=== PATIENT | female | born 1950 | race American Indian/Alaskan Native ===

== ENCOUNTER 2017-03-08 21:57 | Emergency (ER) | payer MEDICARE ==
[2017-03-08 22:48] LABS: Basophils % (Auto) 0.5 % (0.0-1.8); Eosinophils % (Auto) 2.1 % (0.0-4.3); Hematocrit 36.3 % (30.3-42.9); Mean Corpuscular HGB Conc 33 % (30-34); Mean Corpuscular Hemoglobin 28 pg (28-32); Mean Corpuscular Volume 84 fl (79-97); Platelet Count 229 K/mm3 (140-440); Red Blood Count 4.34 M/mm3 (3.65-5.03); Red Cell Distribution Width 14.5 % (13.2-15.2)
[2017-03-08 23:03] LABS: Anion Gap 15 mmol/L; BUN/Creatinine Ratio 11.25; Blood Urea Nitrogen 9 mg/dL (7-17); Calcium 9.8 mg/dL (8.4-10.2); Carbon Dioxide 28 mmol/L (22-30); Chloride 101.2 mmol/L (98-107); Glucose 101 mg/dL (65-100); Potassium 4.4 mmol/L (3.6-5.0); Sodium 140 mmol/L (137-145)
[2017-03-09 01:10] VITALS: BP 152/75
--- NOTE | 2017-03-09 02:32 | Emergency Department Report ---
ED Chest Pain HPI - General Chief Complaint: Chest Pain Stated Complaint: CHEST PAIN Time Seen by Provider: 03/09/17 01:24 Source: patient Mode of arrival: Wheelchair Limitations: No Limitations - History of Present Illness Initial Comments: This is a 66-year-old Afro-Monegasque female presents to the emergency department with complaint of midsternal nonradiating chest pain that occurred about 1 hour prior to presentation and shortly after she finished dinner this evening. EMS was called with the patient says that her symptoms resolved by the time she got into the ambulance. She denies any shortness of breath, nausea, vomiting, fever , palpitations, back pain. She did not take anything for symptoms prior to presentation. She has a past medical history of hypertension. She does not smoke cigarettes but does sometimes chew tobacco. She does not currently have a primary care physician. No recent travel or sick contacts at home. Severity scale (0 -10): 8 - Related Data Home Medications Medication Instructions Recorded Confirmed Last Taken No Known Home Medications [No 03/09/17 03/09/17 Unknown Reported Home Medications] Allergies Allergy/AdvReac Type Severity Reaction Status Date / Time No Known Allergies Allergy Verified 03/08/17 22:11 Heart Score - HEART Score History: Slightly suspicious EKG: Normal Age: > 65 Risk factors: 1-2 risk factors Troponin: < normal limit HEART Score: 3 - Critical Actions Critical Actions: 0-3 pts:0.9-1.7%risk of adverse cardiac event.Candidate for discharge ED Review of Systems ROS: Stated complaint: CHEST PAIN Other details as noted in HPI Comment: All other systems reviewed and negative Constitutional: denies: chills, fever Eyes: denies: eye pain, eye discharge, vision change ENT: denies: ear pain, throat pain Respiratory: denies: cough, shortness of breath, wheezing Cardiovascular: chest pain. denies: palpitations Gastrointestinal: denies: abdominal pain, nausea, diarrhea Genitourinary: denies: urgency, dysuria, discharge Musculoskeletal: denies: back pain, joint swelling, arthralgia Skin: denies: rash, lesions Neurological: denies: headache, weakness, paresthesias ED Past Medical Hx - Past Medical History Previous Medical History?: Yes Hx Hypertension: Yes Hx Arthritis: Yes Additional medical history: BORDERLINE CHOLESTEROL / STOMACH ULCERS - Surgical History Past Surgical History?: No - Social History Smoking Status: Current Every Day Smoker Substance Use Type: Alcohol - Medications Home Medications: Home Medications Medication Instructions Recorded Confirmed Last Taken Type No Known Home Medications [No 03/09/17 03/09/17 Unknown History Reported Home Medications] ED Physical Exam - General Limitations: No Limitations - Other Other exam information: GENERAL: The patient is well-developed well-nourished. HEENT: Normocephalic. Atraumatic. Extraocular motions are intact. Patient has moist mucous membranes. Pupils equal reactive to light bilaterally. NECK: Supple. Trachea is midline. CHEST/LUNGS: Clear to auscultation. There is no respiratory distress noted. HEART/CARDIOVASCULAR: Regular. There is no tachycardia. There is no gallop rub or murmur. ABDOMEN: Abdomen is soft, nontender. Patient has normal bowel sounds. There is no abdominal distention. SKIN: There is no rash. There is no edema. There is no diaphoresis. NEURO: The patient is awake, alert, and oriented. The patient is cooperative. The patient has no focal neurologic deficits. The patient has normal speech. MUSCULOSKELETAL: There is no tenderness or deformity. There is no limitation range of motion. There is no evidence of acute injury. ED Course Vital Signs 03/08/17 03/09/17 22:11 01:05 Temperature 98.4 F Pulse Rate 68 58 L Respiratory 24 12 Rate Blood Pressure 154/92 Blood Pressure 152/75 [Left] O2 Sat by Pulse 100 100 Oximetry HAWA score - Hawa Score Age > 65: (1) Yes Aspirin use within the Past 7 Days: (0) No 3 or more CAD Risk Factors: (0) No 2 or more Angina events in past 24 hrs: (0) No Known CAD with more than 50% Stenosis: (0) No Elevated Cardiac Markers: (0) No ST Deviation Greater than 0.5mm: (0) No HAWA Score: 1 ED Medical Decision Making - Lab Data Result diagrams: 03/08/17 22:31 03/08/17 22:31 - EKG Data -: EKG Interpreted by Me EKG shows normal: sinus rhythm, axis, intervals, QRS complexes, ST-T waves ( nonspecific T-wave) Rate: bradycardia (58 bpm) - EKG Data When compared to previous EKG there are: previous EKG unavailable Interpretation: other (sinus rhythm, 58 bpm, nonspecific T-wave) - Radiology Data Radiology results: image reviewed interpreted by me: Chest x-ray did not show any acute process. Heart is normal shape and size. No effusions. No pneumothorax. No signs of pneumonia seen. - Medical Decision Making 66-year-old female presents emergency Department after having an episode of midsternal nonradiating chest discomfort prior to presentation but the pain also resolved prior to presentation. This occurred just after the patient ate something. EKG does not show any signs of ST elevation WI. Labs are unremarkable including negative troponins 2. Chest x-ray does not show any acute process. Since the patient has no tachycardia, hypoxia, complaints of shortness of breath or any current complaints of chest pain, I felt she was very low suspicion for a PE. She is low on the well's score criteria as well. Patient is low on the heart score criteria and has a HAWA score of 1 but that is only because of her age being greater than 65. She's been in the emergency department for multiple hours and there is been no recurrence of her chest discomfort. For these reasons for the patient is safe for discharge home at this time. She was given a referral for cardiology but encouraged to return to the emergency department immediately with any recurrence of chest pain or any acute distress. - Differential Diagnosis WI, PE, costochondritis, GERD, esophageal spasm Critical Care Time: No Critical care attestation.: If time is entered above; I have spent that time in minutes in the direct care of this critically ill patient, excluding procedure time. ED Disposition Clinical Impression: Chest pain Qualifiers: Chest pain type: unspecified Qualified Code(s): R07.9 - Chest pain, unspecified Disposition: TO HOME OR SELFCARE Is pt being admited?: No Condition: Good Instructions: Chest Pain (ED) Additional Instructions: Please follow-up with a primary care physician in the next few days. I've given a referral for a local nurses' registry director, Dr. Main, to follow-up regarding your previous chest pain. Return to the emergency department with any recurrence of your chest pain or any acute distress. Referrals: OLIVIA LAGUNA MD [Primary Care Provider] - 3-5 Days FARAZ MAIN MD [Staff Physician] - 3-5 Days Forms: Accompanied Note, Work/School Release Form(ED) Time of Disposition: 02:33
--- NOTE | 2017-03-09 09:22 | XRay Report ---
Single view chest: History: Chest pain. Findings: Normal cardiomediastinal silhouette. Trachea is midline. No consolidation, pneumothorax or pleural effusion. Impression: No acute cardiopulmonary findings.
== END 2017-03-09 03:15 | disposition home or self-care (01) ==
LOC: ED 21:57
DX: R07.81 Pleurodynia (principal); I10 Essential (primary) hypertension; F17.200 Nicotine dependence, unspecified, uncomplicated
CPT/HCPCS: 36415; 71010; 80048; 84484; 85025; 93005; 93010